=== PATIENT | female | born 1990 | race Caucasian/White ===

== ENCOUNTER 2023-12-23 11:14 | Emergency (ER) | payer OTHER ==
[~2023-12-23] VITALS: Wt 59.0 kg
[2023-12-23] MEDS ORDERED: PERCOCET 5-3251 EACH PO (11:54)
[2023-12-23] MEDS ORDERED: Motrin,Rufen800 MG PO (11:54)
[2023-12-23] MEDS ORDERED: PENICILLIN VK500 MG PO (11:54)
[2023-12-23] MEDS ORDERED: Lidocaine Hydrochloride 15 ML UDC PO STA (11:56)
[2023-12-23] MEDS ORDERED: BENZOCAINE 20% 11.9 GM GEL T STA (11:56)
[2023-12-23] MEDS ORDERED: Ketorolac Tromethamine 60 MG/2 ML VIAL IM ONE (12:00)
[2023-12-23] MEDS ORDERED: PENICILLIN V POTASSIUM 500 MG TAB PO ONE (12:00)
== END 2023-12-23 12:08 | disposition home or self-care (01) ==
LOC: ED 11:14
DX: K04.7 Periapical abscess without sinus (principal)

== ENCOUNTER → 2024-01-22 | Outpatient (CLI) | payer OTHER ==
[~2024-01-22] MED LIST: Motrin,Rufen800 MG PO; PENICILLIN VK500 MG PO; PERCOCET 5-3251 EACH PO
== END | disposition home or self-care (01) ==
LOC: US 01-21 14:00
PROVIDERS: ATTEND Nurse Practitioner Family
DX: E07.89 Other specified disorders of thyroid (principal); E04.9 Nontoxic goiter, unspecified; G93.39 Other post infection and related fatigue syndromes; R53.83 Other fatigue